=== PATIENT | male | born 1970 | race African-American/Black ===

== ENCOUNTER 2017-06-17 09:08 | Emergency (ER) | payer OTHER ==
[~2017-06-17] VITALS: Ht 165.1 cm; Wt 85.0 kg
[~2017-06-17 09:08] MED LIST: AMOX500T PO; IBUP-238 PO; MAXA10TA2 PO
[2017-06-17 09:10] VITALS: BP 105/55; PULSE 68; RESP 16; TEMP 98.3; O2SAT 99
[2017-06-17] MEDS ORDERED: SUMAtriptan SUCCINATE 50 MG TAB PO ONE (09:15)
[2017-06-17] MEDS ORDERED: MAXA10TA2 PO (09:17)
--- NOTE | 2017-06-17 09:21 | PD ---
HPI Chief Complaint: Headache Time Seen by Provider: 09:17 Travel History International Travel<30 days: No Contact w/Intl Traveler<30days: No Traveled to known affect area: No History of Present Illness HPI 47-year-old Afro-[place] male presents the emergency department with ongoing recurrent migraine headache. Patient states no nausea, vomiting, or focal neurological deficit. No visual changes currently. Headache is currently 7/ 10. Patient states he normally takes Maxalt 10 mg when needed, but is out currently and unable to get in with his doctor tomorrow Tuesday. He has no other acute complaints. No known drug allergies. PFSH Past Medical History Blood Disorders: No Cancer: No Cardiovascular Problems: No Chest Pain: Yes (PALPATATIONS) Diminished Hearing: No Endocrine: No Genitourinary: No Immune Disorder: No Musculoskeletal: No Neurologic: No Psychiatric: No Reproductive: No Respiratory: No Migraines: Yes (CLUSTER HEADACHES) PNEUMOCCOCAL Vaccine (Year): 2 Past Surgical History Abdominal Surgery: Yes (HERNIA REPAIR) Social History Alcohol Use: No Tobacco Use: Yes (1/2 PACK A DAY) Substance Use: No Allergies-Medications (Allergen,Severity, Reaction): Coded Allergies: No Known Allergies (Verified , 07/30/14) Reported Meds & Prescriptions Reported Meds & Active Scripts Active Motrin (Ibuprofen) 800 Mg Tab 800 Mg PO TID Amoxil (Amoxicillin) 500 Mg Cap 500 Mg PO TID Reported Maxalt (Rizatriptan Benzoate) 10 Mg Tab 10 Mg PO DAILY PRN FOR HEADACHE (MAXIMUM DOSAGE EQUALS 30 MG/24 HOURS) Review of Systems Except as stated in HPI: all other systems reviewed are Neg General / Constitutional: No: Fever Eyes: No: Visual changes HENT: Positive: Headaches (see history present illness) Cardiovascular: No: Chest Pain or Discomfort Respiratory: No: Shortness of Breath Gastrointestinal: No: Abdominal Pain Genitourinary: No: Dysuria Musculoskeletal: No: Pain Skin: No Rash Neurologic: No: Weakness Psychiatric: No: Depression Endocrine: No: Polydipsia Hematologic/Lymphatic: No: Easy Bruising Physical Exam Narrative GENERAL: Mild to moderate distress. SKIN: Warm and dry. Normal color. Normal turgor. HEAD: Atraumatic. Normocephalic. EYES: Pupils equal and round. No scleral icterus. No injection or drainage. Mild photophobia ENT: No nasal bleeding or discharge. Mucous membranes pink and moist. TMs are clear. No sinus tenderness. Pharynx is clear. NECK: Trachea midline. Supple nontender. CARDIOVASCULAR: Regular rate and rhythm. RESPIRATORY: No accessory muscle use. Clear to auscultation. Breath sounds equal bilaterally. MUSCULOSKELETAL: Extremities without clubbing, cyanosis, or edema. No obvious deformities. NEUROLOGICAL: Awake and alert. No obvious cranial nerve deficits. Motor grossly within normal limits. Five out of 5 muscle strength in the arms and legs. Normal speech. PSYCHIATRIC: Appropriate mood and affect; insight and judgment normal. Data Data Last Documented VS Vital Signs Date Time Temp Pulse Resp B/P Pulse Ox O2 Delivery O2 Flow Rate FiO2 06/17/17 09:10 98.3 68 16 105/55 99 Orders Sumatriptan Succinate (Imitrex) (06/17/17 09:15) [facility] Medical Decision Making Medical Screen Exam Complete: Yes Emergency Medical Condition: Yes Medical Record Reviewed: Yes Differential Diagnosis Migraine headache. Recurrent headache. Need for medication refill Narrative Course Patient is medically stable at time of exam. Patient is given oral dose of sumatriptan 50 mg by mouth now. Patient is given a prescription for Maxalt 10 mg as directed #10. Patient follow with his primary care physician as scheduled or return to emergency department as needed. Diagnosis Primary Impression: Migraine headache Qualified Code: G43.109 - Migraine with aura and without status migrainosus, not intractable Referrals: Primary Care Physician Patient Instructions: General Instructions, Migraine Headache (ED) Additional Instructions: Patient is medically stable at time of exam. Patient is given oral dose of sumatriptan 50 mg by mouth now. Patient is given a prescription for Maxalt 10 mg as directed #10. Patient follow with his primary care physician as scheduled or return to emergency department as needed. Med/Other Pt SpecificInfo: Prescription(s) given Scripts Rizatriptan (Maxalt)10 Mg Tab1 Tab PO DAILY PRN (HEADACHE) #10 TAB Prov:Bonilla Montoya MD 06/17/17 Disposition: 01 DISCHARGE HOME Condition: Stable Jaskaran Greenberg Jun 17, 2017 09:21
== END 2017-06-17 11:09 | disposition home or self-care (01) ==
LOC: NEPK 09:08
DX: G43.109 Migraine with aura, not intractable, without status migrainosus (principal); F17.210 Nicotine dependence, cigarettes, uncomplicated
CPT/HCPCS: 99283